=== PATIENT | female | born 1940 | race Asian ===

== ENCOUNTER 2016-06-27 15:23 | Inpatient (IN) | payer OTHER, MEDICARE ==
[~2016-06-27] VITALS: Ht 154.9 cm; Wt 58.1 kg
[2016-06-27 17:43] LABS: UA SPECIFIC GRAVITY 1.025 (1.005-1.035); microscopic required? YES; urine erythrocyte 1+ (NEGATIVE)
[2016-06-27 18:07] LABS: BASOPHIL % 0.4 % (0-2); PLATELET COUNT 147 x10^3mcL (130-400)
[2016-06-27 18:11] LABS: CALCIUM 9.1 mg/dL (8.5-10.1); CARBON DIOXIDE 25.6 mmol/L (21-32); CHLORIDE SERUM 105 mmol/L (98-107); CREATININE SERUM 0.8 mg/dL (0.6-1.0); GLUCOSE SERUM 118 mg/dL (74-106); POTASSIUM SERUM 3.7 mmol/L (3.5-5.1); SODIUM SERUM 139 mmol/L (136-145)
[2016-06-27 18:38] LABS: ALBUMIN 4.1 g/dL (3.4-5.0); ALKALINE PHOSPHATASE 62 U/L (46-116); ALT/SGPT 46 U/L (14-59); AST/SGOT 38 U/L (15-37); BILIRUBIN TOTAL 0.42 mg/dL (0.20-1.00)
[2016-06-27 18:41] LABS: CK-MB 0.6 ng/mL (0-3.6)
[2016-06-27 18:50] LABS: TOTAL PROTEIN, SERUM 8.4 g/dL (6.4-8.2)
[2016-06-27 18:51] LABS: T3 TOTAL 0.78 ng/mL
[2016-06-27 19:01] LABS: ERYTHROCYTE SED RATE 36 mm/hr (0-30)
[2016-06-27 19:13] LABS: C REACTIVE PROTEIN < 0.2 mg/dL (<=0.9)
[2016-06-27 19:56] LABS: FREE T4 0.89 ng/dL (0.76-1.46); FREE THYROXINE INDEX 2.3 ug/dL (1.4-4.5); T4(THYROXINE) 7.8 ug/dL (4.7-13.3)
[2016-06-27 22:54] LABS: CHOLESTEROL/HDL RATIO 2.6
[2016-06-28 00:37] VITALS: BP 136/47
[2016-06-28 00:49] VITALS: Ht 154.9 cm; Wt 58.1 kg
[2016-06-28 06:10] LABS: BASOPHIL % 0.5 % (0-2); PLATELET COUNT 145 x10^3mcL (130-400)
[2016-06-28 06:36] LABS: SODIUM SERUM 142 mmol/L (136-145)
[2016-06-28 06:38] LABS: RED CELL DISTRIBUTION WIDTH 14.6 % (11.5-14.5)
[2016-06-28 06:53] LABS: CALCIUM 8.3 mg/dL (8.5-10.1); CARBON DIOXIDE 25.1 mmol/L (21-32); CHLORIDE SERUM 107 mmol/L (98-107); CREATININE SERUM 0.8 mg/dL (0.6-1.0); GLUCOSE SERUM 97 mg/dL (74-106); MAGNESIUM 2.2 mg/dL (1.8-2.4); PHOSPHOROUS 3.1 mg/dL (2.5-4.9); POTASSIUM SERUM 3.8 mmol/L (3.5-5.1)
[2016-06-28 06:57] VITALS: BP 136/46
[2016-06-28 09:10] VITALS: BP 130/50
[2016-06-28] MEDS ORDERED: TESSALON PERLE100 MG PO (10:10)
[2016-06-28] MEDS ORDERED: ATIVAN1 MG PO (10:10)
[2016-06-28 13:16] VITALS: BP 116/51
[2016-06-28 17:25] VITALS: BP 111/52
[2016-06-28 21:09] VITALS: BP 124/47
[2016-06-29 06:38] VITALS: BP 105/69
[2016-06-29] MEDS ORDERED: LIPI10 PO (08:32)
[2016-06-29] MEDS ORDERED: FLO4 PO (08:32)
[2016-06-29] MEDS ORDERED: ECO81 PO (08:33)
[2016-06-29 09:12] VITALS: BP 148/60
[2016-06-29 10:56] VITALS: BP 148/60
== END 2016-06-29 12:23 | disposition home or self-care (01) | DRG 254 ==
LOC: ED 15:23 → DU 21:21
PROVIDERS: Specialist; ADMIT Family Medicine
DX: K92.9 Disease of digestive system, unspecified (principal); E11.65 Type 2 diabetes mellitus with hyperglycemia; I10 Essential (primary) hypertension; K21.9 Gastro-esophageal reflux disease without esophagitis; Z95.1 Presence of aortocoronary bypass graft; Z90.10 Acquired absence of unspecified breast and nipple; I70.0 Atherosclerosis of aorta
CPT/HCPCS: 36600; 76770; 82962; 83880; 84439; C9113; J2405; J3010; J7030; Q0092; Q9967

== ENCOUNTER 2016-12-21 11:04 | Emergency (ER) | payer OTHER, MEDICARE ==
[~2016-12-21] VITALS: Ht 157.5 cm; Wt 54.4 kg
[~2016-12-21 11:04] MED LIST: ATIVAN1 MG PO; ECO81 PO; FLO4 PO; LIPI10 PO; TESSALON PERLE100 MG PO
[2016-12-21 13:47] VITALS: BP 136/67
== END 2016-12-21 13:47 | disposition home or self-care (01) ==
LOC: ED 11:04
DX: S92.512A Displaced fracture of proximal phalanx of left lesser toe(s), initial encounter for closed fracture (principal); I10 Essential (primary) hypertension; Z95.4 Presence of other heart-valve replacement; Z85.3 Personal history of malignant neoplasm of breast; Z90.11 Acquired absence of right breast and nipple; W01.0XXA Fall on same level from slipping, tripping and stumbling without subsequent striking against object, initial encounter; Y93.89 Activity, other specified; Y92.89 Other specified places as the place of occurrence of the external cause; Y99.8 Other external cause status

== ENCOUNTER → 2017-06-18 | Outpatient (CLI) | payer MEDICARE, OTHER | END | disposition home or self-care (01) | LOC: RD 12:56 | DX: M25.512 Pain in left shoulder (principal); M25.511 Pain in right shoulder ==